=== PATIENT | female | born 1955 | race Caucasian/White ===

== ENCOUNTER → 2022-12-21 12:45 | Outpatient (CLI) | payer MEDICARE, SELFPAY ==
--- NOTE | 2022-12-21 | DI.RAD.S_ITS ---
PROCEDURE: XR HIP W PEL IF DONE RT 2V INDICATIONS: Pain in right hip TECHNIQUE: AP pelvis with lateral view(s) of the right hip(s). COMPARISON: None. FINDINGS: Bones: No fractures or dislocations. Pelvic ring appears intact. No suspicious bony lesions. Mild symmetric hip and sacroiliac joint degeneration bilaterally. Soft tissues: The visualized bowel gas pattern is normal. No suspicious soft tissue calcifications. IMPRESSION: Mild degenerative joint disease. Dictated by: Arlyn Moody M.D. on 12/22/2022 at 8:04 Approved by: Arlyn Moody M.D. on 12/22/2022 at 8:05
== END ==
LOC: RAD 12:49
PROVIDERS: PCP Registered Nurse; Referring Provider Registered Nurse; Visit Provider Registered Nurse
DX: M16.0 Bilateral primary osteoarthritis of hip (principal); M47.818 Spondylosis without myelopathy or radiculopathy, sacral and sacrococcygeal region; M25.551 Pain in right hip
CPT/HCPCS: 73502

== ENCOUNTER → 2023-10-03 | Outpatient (CLI) | payer MEDICARE, SELFPAY ==
--- NOTE | 2023-10-03 14:20 | DI.RAD.S_ITS ---
Bone Density Report Name: DARRON SUE Age: 67 Sex: Female Ethnicity: White Date of : 1955 Indication: postmenopausal; screening for osteoporosis; prior fracture; Referring Provider: YESENIA ORTIZ Study: Bone densitometry was performed. Exam Date: October 03, 2023 Accession number: [id number] Bone Density: Region BMD T-score Z-score Classification AP Spine(L1-L4) 1.126 0.7 2.7 Normal Femoral Neck (Left) 0.765 -0.8 0.9 Normal Total Hip (Left) 0.921 -0.2 1.2 Normal Femoral Neck (Right) 0.786 -0.6 1.1 Normal Total Hip (Right) 0.931 -0.1 1.3 Normal Total Hip Mean 0.926 -0.2 1.3 Normal World Health Organization criteria for BMD impression classify patients as: Normal (T-score at or above -1.0), Osteopenia (T-score between -1.0 and -2.5), or Osteoporosis (T-score at or below -2.5). 10-year Fracture Risk: FRAX not reported because: All T-scores for Spine Total, Hip Total, Femoral Neck at or above -1.0 Prior hip or vertebral fracture Impression: The patient has normal bone mass. The patient has risk factors, including: previous fracture. Discussion: INCREASED RISK OF FRACTURE DUE TO HISTORY OF FRACTURE. The patient's previous fracture puts the patient at high risk of a future fracture. In untreated patients, the risk of osteoporotic fracture increases approximately two-fold for each 1.0 SD decrease in T-score. Low bone density is not the only risk factor for fracture; also consider factors such as patient's age, frailty or poor health, risk of falling, risk of injury, previous osteoporotic fracture, family history of osteoporosis, cigarette smoking, low body weight, etc. Not everyone with a low trauma fracture has osteoporosis; osteomalacia and other metabolic bone disorders should also be considered. Patients who have osteoporosis should be evaluated for specific diseases and conditions (secondary causes) that may cause or contribute to bone loss and fracture risk. National Osteoporosis Foundation (NOF) recommends pharmacologic intervention for patients with a prior hip or vertebral fracture regardless of BMD T-score. The patient should follow a healthful lifestyle (good nutrition with adequate calcium and vitamin D, and appropriate weight-bearing exercise). Follow-Up: Consider a repeat BMD and Vertebral Fracture Assessment (VFA) exam in 2 years or sooner if medically necessary, to reassess this patient's status. Reported by: SIGRID WEBSTER MD on 10/03/2023 2:41:00 PM.
== END ==
LOC: RAD 14:20
PROVIDERS: PCP Registered Nurse; Referring Provider Registered Nurse; Visit Provider Registered Nurse
DX: Z78.0 Asymptomatic menopausal state (principal); Z13.820 Encounter for screening for osteoporosis
CPT/HCPCS: 77080

== ENCOUNTER 2024-01-08 01:59 | Emergency (ER) | payer MEDICARE, SELFPAY ==
[2024-01-08 02:08] VITALS: BP 124/59; PULSE 89; RESP 18; TEMP 36.7; O2SAT 93; BMI 26.6
--- NOTE | 2024-01-08 02:11 | EKG_ITS ---
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
--- NOTE | 2024-01-08 02:27 | DI.RAD.S_ITS ---
PROCEDURE: XR CHEST 1V INDICATIONS: chest pain TECHNIQUE: One view of the chest was acquired. COMPARISON: None. FINDINGS: Surgical changes and devices: None. Lungs and pleura: Low lung volumes. No dense consolidation or pleural effusion. Mildly prominent pulmonary vasculature Mediastinum: Normal heart size Bones and chest wall: Degenerative changes IMPRESSION: Low lung volumes on this single view study, limiting evaluation. No acute abnormality. Mildly prominent pulmonary vasculature may be an artifact of low lung volumes. No significant discrepancy from prelim report. Dictated by: Lazarus Atkinson M.D. on 01/08/2024 at 7:33 Approved by: Lazarus Atkinson M.D. on 01/08/2024 at 7:34
--- NOTE | 2024-01-08 02:27 | ED.CHESTPAIN ---
HPI - Chest Pain General Chief Complaint: Chest Pain Stated Complaint: Chest pain Time Seen by Provider: 01/08/24 02:17 Source: patient and EMS Mode of arrival: EMS Limitations: no limitations History of Present Illness HPI narrative: 60-year-old woman with a history of hypertension, diabetes, anxiety and chronic muscle pain presents complaining of acute epigastric pain. She notes she had an edible this evening which she occasionally does and has never cause problems previously. She had some type of cheese sandwich that she feels may have contributed to some of her symptoms this evening. She began having severe epigastric pain that was radiating out from her epigastrium and a complete three affiliated up down through to her back etcetera. Shortly thereafter she had an episode of fecal incontinence with thick brown stool. As she was trying to get out of bed so as not to create much of a mess she had large volume emesis that she describes as [place] in color. She called 911 for transport to emergency department. She notes that this point the edible as begining to wear off and she is feeling more in control. She still has some mild epigastric pain. She is pale, weak and appears generally unwell. She has not diaphoretic. She states that she did not feel sick earlier today. No recent fevers or chills. She has not complaining of any palpitations, headaches, neurologic findings, dysuria or flank pain. Related Data Allergies Allergy/AdvReac Type Severity Reaction Status Date / Time ciprofloxacin Allergy Unknown Verified 01/08/24 03:51 codeine Allergy Unknown Verified 01/08/24 03:51 Review of Systems Review of Systems Narrative: Pertinent positive and negative findings as per HPI Patient History Medical History (Updated 01/08/24 @ 03:42 by Brittaney Acevedo MD) Muscle spasm Anxiety Diabetes Hypertension Exam Initial Vital Signs Initial Vital Signs: Vital Signs Temperature 98.1 F 01/08/24 02:08 Pulse Rate 89 01/08/24 02:08 Respiratory Rate 18 01/08/24 02:08 Blood Pressure 124/59 L 01/08/24 02:08 Pulse Oximetry 93 01/08/24 02:08 Oxygen Delivery Method Room Air 01/08/24 02:08 General: chronically ill-appearing, significantly pale, dry mucous membranes, injected sclera Respiratory: Lungs are clear to auscultation, no wheezing no rales no rhonchi. Full and symmetrical air movement Cardiac: Regular rate and rhythm, 3/6 systolic murmur Abdomen: Soft, minor epigastric tenderness, no rebound or guarding. No distention. She does not have a surgical abdomen. Skin: Pale and dry, no rashes Neurologic: Globally weak but Grossly neurologically intact with no obvious asymmetries or abnormalities Extremities: No trauma, well perfused, no lower extremity edema Psych: Cooperative, appropriate insight and affect Course Orders Ordered: ED Orders 01/08/24 02:27 XR chest 1V Stat 01/08/24 02:52 Complete Blood Count AUTO DIFF Stat Comprehensive Metabolic Panel Stat Lipase Stat Magnesium Stat Troponin I Stat Type and Screen Stat Discontinued Medications Sodium Chloride (Normal Saline 0.9%) 1,000 mls @ 1,000 mls/hr IV BOLUS ONE Stop: 01/08/24 03:25 Last Infusion: 01/08/24 03:44 Dose: Infused Documented By: Admin: 01/08/24 02:30 Dose: 1,000 mls/hr Documented By: SONJA Ondansetron HCl (Ondansetron 4 Mg/2 Ml Inj) 4 mg IV NOW ONE Stop: 01/08/24 02:27 Last Admin: 01/08/24 02:30 Dose: 4 mg Documented By: SONJA Ondansetron HCl (Ondansetron 4 Mg Odt Prepack) 1 bottle MISC DIRECTED ONE Stop: 01/08/24 03:41 Last Admin: 01/08/24 04:09 Dose: 1 bottle Documented By: LASHAWN Vital Signs Vital signs: Vital Signs - 8 hr 01/08/24 02:08 01/08/24 04:05 Temperature 98.1 F Pulse Rate 89 69 Respiratory Rate 18 16 Blood Pressure 124/59 L 140/75 Pulse Oximetry 93 98 Oxygen Delivery Method Room Air Room Air MDM - Chest Pain Lab Data 01/08/24 02:52 01/08/24 02:52 Labs: Lab Results 01/08/24 Range/Units 02:52 WBC 3.8 L (4.5-11.0) X10^3/uL RBC 4.30 (4.0-5.2) X10^6/uL Hgb 11.9 L (12.0-16.0) g/dL Hct 35.8 L (36-46) % MCV 83.4 (80-100) fL MCH 27.8 (26-34) PG MCHC 33.3 (30-36) % RDW 13.3 (11.6-14.8) % Plt Count 168 (150-400) X10^3/uL Neut % (Auto) 72.8 (50-75) % Lymph % (Auto) 18.7 L (25-40) % [place] % (Auto) 6.6 (3-14) % Eos % (Auto) 1.2 L (2-4) % Baso % (Auto) 0.7 (0-2) % Neut # (Auto) 2800 (3280-2643) /uL Lymph # (Auto) 700 L (5498-9940) /uL [place] # (Auto) 300 (0-900) /uL Eos # (Auto) 0 (0-450) /uL Baso # (Auto) 0 (0-100) /uL Sodium 139 (137-145) mmol/L Potassium 4.0 (3.4-5.1) mmol/L Chloride 107 (98-107) mmol/L Carbon Dioxide 26 (22-32) mmol/L BUN 21 H (7-17) mg/dL Creatinine 0.81 (0.52-1.04) mg/dL Estimated GFR > 60 (>60) mL/min BUN/Creatinine Ratio 25.9 H (6-22) Glucose 236 H (80-110) mg/dL Calcium 8.6 (8.4-10.2) mg/dL Magnesium 1.9 (1.6-2.3) mg/dL Total Bilirubin 0.4 (0.2-1.3) mg/dL AST 28 (14-36) IU/L ALT 27 (<35) IU/L Alkaline Phosphatase 61 (38-126) U/L Troponin I < 0.012 (0.01-0.034) ng/mL Total Protein 6.2 L (6.3-8.2) g/dL Albumin 4.0 (3.5-5.0) g/dL Globulin 2.2 (1.7-4.1) g/dL Albumin/Globulin Ratio 1.8 (1.0-2.8) Lipase 61 (23-300) U/L Blood Type O Positive Antibody Screen Negative MDM Narrative Medical decision making narrative: CC: Epigastric pain with acute diarrhea and vomiting Complicating co-morbidities: Diabetes, hypertension, she did have a marijuana edible this evening Data collected from: patient Medical records reviewed: No records are available for review Differential considered: Food poisoning, upper GI bleed, gastroenteritis, acute coronary syndrome, adverse effect marijuana Exam documented above, pertinent findings include: Acutely ill-appearing, quite pale, weak, mild epigastric tenderness. She does not have an acute surgical abdomen and does not appear rehab stroke. Lab Test results independently reviewed as above. Pertinent findings: CBC shows a white count at 3.8. H and H is 11.9 and 35.8 with no priors for comparison. Platelets appropriate at 168 Chemistries are reassuring. Glucose is elevated at 236. Initial troponin is undetected Lipase is reassuring Independently reviewed EKG: Sinus rhythm at a rate of 89. No acute ischemic changes. Imaging studies independently reviewed: Chest x-ray with minor vascular congestion. No pulmonary infiltrates Treatments: Fluids, Zofran Re-evaluations:340am patient is feeling significantly improved after a L of fluid and Zofran. She has tolerating a glass of boyd sai. Discussion: 68-year-old woman presents with acute epigastric pain, followed by an episode of very loose stool and then significant emesis. None of this has continued. She feels like she ?got everything cleaned out? and is doing significantly better. Blood work is reassuring. Glucose was slightly elevated. No sign of dramatic dehydration. She is mildly anemic but no signs of ongoing bleeding and it does not wake there was blood in either her stool or emesis. At this point her hypothesis that ?it was the cheese sandwich? may in fact be correct. There was no sign of acute coronary syndrome, pancreatitis, acute abdomen, ongoing GI bleeding or other reasons for further evaluation or hospitalization at this time. Patient is safe for discharge home Discharge Plan Departure Patient Disposition: Home Clinical Impression: Acute diarrhea, Abdominal pain, epigastric Vomiting Qualifiers: Vomiting type: unspecified Nausea presence: with nausea Qualified Code(s): R11.2 - Nausea with vomiting, unspecified Instructions: DI for Vomiting -- Adult Activity Restrictions/Additional Instructions: Thank you for coming in today Fortunately, your blood work looks quite reassuring. Your color looks much better after receiving a L of fluid. There was no evidence of significant infection, heart attack or heart attack like syndrome, pancreatitis, bleeding from your stomach or your lower bowel or other life-threatening reasons that would require hospitalization or further imaging today I suspect that you are right and was something that you 8 that caused the surprise loose stools and episode of emesis. I am going to send you home with a couple tablets of ondansetron/Zofran. These tablets dissolve under your tongue and are for dealing with nausea. If you find that you are getting worse or develop any new symptoms, please feel free to return to the emergency department for further evaluation. Referrals: Loren Esqueda ARNP [Primary Care Provider] - Stand Alone Forms: Patient Portal/API
[2024-01-08] MEDS: ONDANSETRON 4 MG/2 ML INJ IV (02:30)
[2024-01-08] MEDS: SODIUM CHLORIDE 0.9% 1,000 ML 1000 ML IV (02:30)
[2024-01-08 03:03] LABS: Add Manual Diff / Slide Review NO; Basophils Absolute Auto 0 /uL (0-100); Basophils Percent Auto 0.7 % (0-2); Eosinophils Absolute Auto 0 /uL (0-450); Eosinophils Percent Auto 1.2 % (2-4); Hematocrit 35.8 % (36-46); Hemoglobin 11.9 g/dL (12.0-16.0); Lymphocytes Absolute Auto 700 /uL (1100-4500); Lymphocytes Percent Auto 18.7 % (25-40); Mean Corpuscular HGB Conc 33.3 % (30-36); Mean Corpuscular Hemoglobin 27.8 PG (26-34); Mean Corpuscular Volume 83.4 fL (80-100); Monocytes Absolute Auto 300 /uL (0-900); Monocytes Percent Auto 6.6 % (3-14); Neutrophils Absolute Auto 2800 /uL (1500-7000); Neutrophils Percent Auto 72.8 % (50-75); Platelet Count 168 X10^3/uL (150-400); Red Cell Distribution Width 13.3 % (11.6-14.8); White Blood Cell Count 3.8 X10^3/uL (4.5-11.0)
[2024-01-08 03:13] LABS: Alanine Aminotransferase 27 IU/L (<35); Albumin Globulin Ratio 1.8 (1.0-2.8); Alkaline Phosphatase 61 U/L (38-126); Aspartate Aminotransferase 28 IU/L (14-36); BUN Creatinine Ratio 25.9 (6-22); Bilirubin Total 0.4 mg/dL (0.2-1.3); Blood Urea Nitrogen 21 mg/dL (7-17); Calcium 8.6 mg/dL (8.4-10.2); Carbon Dioxide 26 mmol/L (22-32); Chloride 107 mmol/L (98-107); Estimated Glomerular Filt Rate > 60 mL/min (>60); Globulin 2.2 g/dL (1.7-4.1); Glucose 236 mg/dL (80-110); HEMOLYSIS < 15 (0-50); Lipase 61 U/L (23-300); Magnesium 1.9 mg/dL (1.6-2.3); Sodium 139 mmol/L (137-145); Total Protein 6.2 g/dL (6.3-8.2)
[2024-01-08 03:24] LABS: Troponin I < 0.012 ng/mL (0.01-0.034)
[2024-01-08 04:05] VITALS: BP 140/75; PULSE 69; RESP 16; O2SAT 98
[2024-01-08] MEDS: ONDANSETRON 4 MG ODT PREPACK 1 BOTTLE MISC (04:09)
== END 2024-01-08 04:27 | disposition home or self-care (01) ==
PROVIDERS: Emergency Provider Emergency Medicine; PCP Registered Nurse
DX: R10.13 Epigastric pain (principal); R19.7 Diarrhea, unspecified; R11.2 Nausea with vomiting, unspecified
CPT/HCPCS: 36415; 71045; 80053; 83690; 83735; 84484; 85025; 86850; 86900; 86901; 93005; 96374; 99283; 99284; J2405

== ENCOUNTER → 2024-06-13 12:58 | Outpatient (CLI) | payer MEDICARE, SELFPAY ==
--- NOTE | 2024-06-13 13:01 | DI.RAD.S_ITS ---
PROCEDURE: XR CHEST 2V INDICATIONS: PNEUMONIA TECHNIQUE: 2 views of the chest were acquired. COMPARISON: [facility], CR, XR CHEST 1V, 01/08/2024, 2:27. FINDINGS: Heart, mediastinum and pulmonary vascular: Heart is normal in size and configuration. Mediastinum is unremarkable. Pulmonary vascular is normal. Lungs: Minor airspace disease in the right mid lung is new likely represents atelectasis or less likely developing infiltrate Pleural spaces: Normal-no effusions or pneumothorax. Bones and soft tissues: Moderate degenerative disc disease seen throughout the thoracic spine IMPRESSION: Possible developing infiltrate right mid lung Dictated by: Omar Mahoney M.D. on 06/16/2024 at 7:12 Approved by: Omar Mahoney M.D. on 06/16/2024 at 7:13
== END ==
PROVIDERS: PCP Registered Nurse; Referring Provider Registered Nurse; Visit Provider Registered Nurse
DX: J15.8 Pneumonia due to other specified bacteria (principal)
CPT/HCPCS: 71046

== ENCOUNTER → 2024-07-30 12:12 | Outpatient (CLI) | payer MEDICARE, SELFPAY ==
--- NOTE | 2024-07-30 12:15 | DI.RAD.S_ITS ---
PROCEDURE: XR CHEST 2V INDICATIONS: COUGH TECHNIQUE: 2 views of the chest were acquired. COMPARISON: [facility], CR, XR CHEST 2V, 06/13/2024, 13:11. [facility], CR, XR CHEST 1V, 01/08/2024, 2:27. FINDINGS: Surgical changes and devices: None. Lungs and pleura: No dense airspace disease or pleural effusion by radiography. Mediastinum: Normal heart size, unchanged Bones and chest wall: Unremarkable IMPRESSION: No acute radiographic abnormality. Dictated by: Lazarus Atkinson M.D. on 07/30/2024 at 16:48 Approved by: Lazarus Atkinson M.D. on 07/30/2024 at 16:49
== END ==
LOC: RAD 12:14
PROVIDERS: PCP Registered Nurse; Referring Provider Family Medicine; Visit Provider Family Medicine
DX: R05.9 Cough, unspecified (principal)
CPT/HCPCS: 71046

== ENCOUNTER → 2025-05-08 11:18 | Outpatient (CLI) | payer MEDICARE, SELFPAY ==
--- NOTE | 2025-05-08 11:24 | DI.RAD.S_ITS ---
PROCEDURE: XR WRIST LT MIN 3V INDICATIONS: INJURY OF LEFT WRIST TECHNIQUE: 4 views of the wrist were acquired. COMPARISON: None. FINDINGS: Bones: No fractures or dislocations. No suspicious bony lesions. Soft tissues: No suspicious soft tissue calcifications. IMPRESSION: No acute osseous abnormality. If pain persists with conservative management, consider repeat x-ray in 10-14 days or cross-sectional imaging. Dictated by: Kevon Centeno M.D. on 05/08/2025 at 13:48 Approved by: Kevon Centeno M.D. on 05/08/2025 at 13:48
== END ==
LOC: RAD 11:21
PROVIDERS: PCP Registered Nurse; Referring Provider Registered Nurse; Visit Provider Family Medicine
DX: S69.92XA Unspecified injury of left wrist, hand and finger(s), initial encounter (principal); X58.XXXA Exposure to other specified factors, initial encounter
CPT/HCPCS: 73110